=== PATIENT | female | born 1940 | race Caucasian/White ===

== ENCOUNTER → 2017-08-06 | Day surgery (SDC) | payer OTHER, BC ==
[2017-07-30 13:29] VITALS: BMI 23.0
[~2017-08-06] VITALS: Ht 157.5 cm; Wt 56.8 kg
[~2017-08-06] MED LIST: ASPI81TA28 PO; CALC1TAB10 PO; ESTR1TAB2 PO; LEVO75TA5 PO; LIDOCAINE HCL 2% 2 ML VIAL (20MG/ML) ONE; MULT-506 PO; OMEG10007; PROPOFOL IV EMULSION 10 MG/ML 20 ML VIAL IV ONE; SODIUM CHLORIDE 0.9% 500ML 500 ML IV ONE; VITAMIN D PO
[2017-08-06 09:44] VITALS: Ht 157.5 cm; Wt 56.8 kg
--- NOTE | 2017-08-06 10:01 | Endo History and Physical ---
History & Physical Date of Service: Aug 06, 2017. Chief Complaint: h/o polyps Referring Physician: Dr. Donaldson History of Present Illness h/o polyps Past Medical History Osteoporosis, Arthritis, Fractures, Anxiety, Reflux, Gynecological Problems, Cancer, Syncopal Episodes, Thrombophlebitis, Thyroid Disease, Depression Past Surgical History Hx Cardiac Surgery: No Hx Internal Defibrillator: No Hx Pacemaker: No Hx Abdominal Surgery: Yes (ALEXANDRO BSO) Hx of Implantable Prosthesis: No Hx Post-Op Nausea and Vomiting: No Hx Cancer Surgery: Yes (PARTIAL THYROIDECTOMY, RT LUMPECTOMY) Hx Thoracic Surgery: No Hx Orthopedic: Yes (ORIF LEFT ANKLE (HARDWARE)) Hx Urinary Tract Surgery: No Family History Polyp Social History Smoking Status: Never Smoker Hx Substance Use: No Hx Alcohol Use: Yes (1 DRINK DAILY) Allergies Coded Allergies: Sulfa Antibiotics (Verified Adverse Reaction, Mild, STOMACH PROBLEMS, ) Current Medications Reported Home Medications Medications Dose Route/Sig Max Daily Dose Days Date Category [Vitamin D] 1 Tab PO Q2D 07/30/17 Reported Estrace (Estradiol) 1 Mg Tab 1 Mg PO HS 07/30/17 Reported Levothyroxine Sodium 75 Mcg Tab 1 Tab PO QAM 07/30/17 Reported Calcium 1000 + D (Calcium Carbonate-Cholecalcife) 1 Tab Tab 1 Tab PO QAM 03/21/14 Reported Aspirin Ec (Aspirin) 81 Mg Tab 81 Mg PO QPM 01/08/14 Reported [place]-3 (Fish Oil) 1 Ea Cap 2 Tabs DAILY 01/08/14 Reported Multivitamin (Multivitamins) Tab 1 Tab PO DAILY 01/25/09 Reported Vital Signs Weight (Kilograms): 56.82 Height (Feet): 5 Height (Inches): 2 Physical Exam General Appearance: WD/WN, no apparent distress Assessment and Plan colonoscopy today
--- NOTE | 2017-08-06 10:36 | Discharge Instructions ---
Endoscopy Patient Instructions Date / Procedure(s) Performed Aug 06, 2017. Colonoscopy Allergy Information Coded Allergies: Sulfa Antibiotics (Verified Adverse Reaction, Mild, STOMACH PROBLEMS, ) Discharge Date / Findings Aug 06, 2017. diverticulosis; no polyps Medication Instructions Stopped Medication(s): OK to continue all home medications Restart Stopped Medication(s): as above as above Provider Instructions Activity Restrictions - No exercising or heavy lifting for 24 hours. - Do not drink alcohol the day of the procedure. - Do not drive a car or operate machinery until the day after the procedure. - Do not make any important decisions or sign important papers in 24 hours after the procedure. Following Day: - Return to full activity which may include returning to work/school. Diet Start your diet with liquids and light foods (jello, soup, juice, toast). Then eat your usual diet if not nauseated. Treatment For Common After Affects For mild abdominal pain, bloating, or excessive gas: - Rest - Eat lightly - Lie on right side Follow-Up Information Follow-up with Dr. Donaldson as scheduled Anesthesia Information What You Should Know You have had a procedure that required some medicine to reduce anxiety and discomfort. This treatment is called moderate sedation. After receiving the treatment, you may be sleepy, but you will be able to breathe on your own. The effects of the treatment may last for several hours. Follow these instructions along with Activity/Diet recommendations noted above: * Do NOT do anything where dizziness or clumsiness would be dangerous. * Rest quietly at home today, then you can be up and about tomorrow. * Have a responsible person stay with you the rest of today. * You may have had an I.V. today. If so, you may take the dressing off later today. Recommendations Call your doctor if: * Trouble breathing * Continuous vomiting for more than 24 hours * Temperature above 101 degrees * Severe abdominal pain or bloating * Pain not relieved by pain medicine ordered * There is increased drainage or redness from any incision * A large amount of rectal bleeding greater than 2-3 tablespoons. (If you had a polyp/s removed or have hemorrhoids, a small amount of blood - from the rectum is to be expected.) * You have any unanswered questions or concerns. IN THE EVENT OF A SERIOUS EMERGENCY, GO TO THE NEAREST EMERGENCY ROOM Your discharge instructions were prepared by provider Justina Franco. Patient Instructions Signature Page Katerina Salmon Patient (or Guardian) Signature/Date: I have read and understand the instructions given to me by my caregivers. Caregiver/RN/Doctor Signature/Date: The above-named patient and/or guardian has received patient instructions on this date. + Original Patient Signature Page (only) stays with chart. Please make copy for patient.
--- NOTE | 2017-08-06 10:43 | GI REPORT ---
Procedure Date: 08/06/2017 10:05 AM Procedure: Colonoscopy Indications: Surveillance: Personal history of adenomatous polyps on last colonoscopy 5 years ago Medicines: Propofol per Anesthesia Complications: No immediate complications. Estimated blood loss: None. Estimated Blood Loss: Estimated blood loss: none. Procedure: Pre-Anesthesia Assessment: - Prior to the procedure, a History and Physical was performed, and patient medications, allergies and sensitivities were reviewed. The patient's tolerance of previous anesthesia was reviewed. - The risks and benefits of the procedure and the sedation options and risks were discussed with the patient. All questions were answered and informed consent was obtained. - Patient identification and proposed procedure were verified prior to the procedure by the physician and the nurse. The procedure was verified in the pre-procedure area in the procedure room. - Mental Status Examination: alert and oriented. Airway Examination: normal oropharyngeal airway and neck mobility. Respiratory Examination: clear to auscultation. CV Examination: normal. Abdominal Examination: bowel sounds present, abdomen soft and non-tender, no masses or organomegaly noted. - ASA Grade Assessment: III - A patient with severe systemic disease. After I obtained informed consent, the scope was passed under direct vision. Throughout the procedure, the patient's blood pressure, pulse, and oxygen saturations were monitored continuously. The scope was introduced through the anus and advanced to the cecum, identified by appendiceal orifice and ileocecal valve. The colonoscopy was performed without difficulty. The patient tolerated the procedure well. The quality of the bowel preparation was good. Findings: The perianal and digital rectal examinations were normal. Pertinent negatives include normal sphincter tone and no palpable rectal lesions. Multiple small and large-mouthed diverticula were found in the sigmoid colon. The retroflexed view of the distal rectum and anal verge was normal and showed no anal or rectal abnormalities. Impression: - Diverticulosis in the sigmoid colon. - The distal rectum and anal verge are normal on retroflexion view. - No specimens collected. Recommendation: - No repeat colonoscopy due to age and the absence of advanced adenomas. - Return to primary care physician as previously scheduled. - Discharge patient to home. Justina Franco D.O. Justina Franco DO 08/06/2017 10:42:54 AM This report has been signed electronically. Note Initiated On: 08/06/2017 10:05 AM I attest to the content of the Intraoperative Record and orders documented therein, exceptions below
--- NOTE | 2017-08-06 10:59 | Anesthesiology Progress Note ---
Anesthesia Post Op Note Date & Time Aug 06, 2017 at 10:59 Vital Signs Pain Intensity: 0 Vital Signs Past 12 Hours Date Time Temp Pulse Resp B/P (MAP) Pulse Ox O2 Delivery O2 Flow Rate FiO2 08/06/17 10:51 69 16 107/74 (85) 100 Room Air 08/06/17 10:38 73 16 89/53 (65) 98 Room Air 08/06/17 10:05 36.3 68 16 142/62 (88) 99 Room Air Notes Mental Status: alert / awake / arousable, participated in evaluation Pt Amnestic to Procedure: Yes Nausea / Vomiting: adequately controlled Pain: adequately controlled Airway Patency, RR, SpO2: stable & adequate BP & HR: stable & adequate Hydration State: stable & adequate Anesthetic Complications: no major complications apparent
[2017-08-06 11:09] VITALS: BP 129/72; PULSE 61; O2SAT 100
== END | disposition home or self-care (01) ==
LOC: C.GI 09:23
PROVIDERS: ATTEND Internal Medicine
DX: Z12.11 Encounter for screening for malignant neoplasm of colon (principal); Z88.2 Allergy status to sulfonamides; Z86.010 Personal history of colon polyps; K57.30 Diverticulosis of large intestine without perforation or abscess without bleeding; M19.90 Unspecified osteoarthritis, unspecified site; Z79.82 Long term (current) use of aspirin; Z90.89 Acquired absence of other organs; Z98.890 Other specified postprocedural states; Z85.3 Personal history of malignant neoplasm of breast; Z83.71 Family history of colonic polyps; Z98.41 Cataract extraction status, right eye; Z98.42 Cataract extraction status, left eye